=== PATIENT | female | born 1990 ===

== ENCOUNTER 2021-02-26 11:13 | Outpatient (CLI) | payer OTHER | END 2021-02-26 11:22 | disposition home or self-care (01) | LOC: RAD 11:13 | PROVIDERS: ATTEND Radiology Diagnostic Radiology | DX: M25.532 Pain in left wrist (principal) ==

== ENCOUNTER 2021-03-01 16:57 | Outpatient (CLI) | payer OTHER | END 2021-03-01 17:07 | disposition home or self-care (01) | LOC: RAD 16:57 | PROVIDERS: ATTEND Specialist | DX: M79.642 Pain in left hand (principal); M79.641 Pain in right hand ==

== ENCOUNTER 2021-06-27 09:00 | Outpatient (CLI) | payer OTHER | END 2021-06-27 09:15 | disposition home or self-care (01) | LOC: PPH VACUNA 09:00 | PROVIDERS: ATTEND Emergency Medicine Pediatric Emergency Medicine | DX: Z23 Encounter for immunization (principal) ==

== ENCOUNTER → 2021-09-30 | Emergency (ER) | payer OTHER ==
[~2021-09-30] VITALS: Ht 175.3 cm; Wt 61.2 kg
== END | disposition home or self-care (01) ==
LOC: ER 03:58
DX: R10.84 Generalized abdominal pain (principal); I88.0 Nonspecific mesenteric lymphadenitis

== ENCOUNTER 2021-10-04 06:17 | Outpatient (CLI) | payer OTHER | END 2021-10-04 07:00 | disposition home or self-care (01) | LOC: TOM 06:17 | PROVIDERS: ATTEND Emergency Medicine | DX: R10.9 Unspecified abdominal pain (principal) ==